=== PATIENT | female | born 1980 | race Two or more races ===

== ENCOUNTER → 2024-10-05 | Outpatient (CLI) | payer MEDICAID, SELFPAY ==
--- NOTE | 2024-10-05 08:33 | XR_ITS ---
Examination: Lumbar spine, 5 views Technique: Lumbar spine AP, lateral, coned lateral lower lumbar spine, bilateral obliques 5 views Exam date and time: October 05, 2024 0854 hours INDICATIONS: Lower back pain beginning 2 weeks ago. FINDINGS: Mild to moderate diffuse facet arthropathy No lumbar fracture Moderate disc narrowing posteriorly L5-S1 No spondylolisthesis Mild lumbar spondylosis IMPRESSION: Moderate degenerative disc disease L5-S1
== END | disposition home or self-care (01) ==
PROVIDERS: PCP Nurse Practitioner Family; Referring Provider Nurse Practitioner Family; Visit Provider Nurse Practitioner Family
DX: M51.379 Other intervertebral disc degeneration, lumbosacral region without mention of lumbar back pain or lower extremity pain (principal)
CPT/HCPCS: 72110

== ENCOUNTER → 2024-11-12 | Outpatient (CLI) | payer MEDICAID, SELFPAY ==
--- NOTE | 2024-11-12 09:57 | XR_ITS ---
Examination: Hand, left 3 views Technique: Hand AP, oblique, lateral 3 views Date and time of exam: November 12, 2024 1055 hours INDICATIONS: Injury to the hand with first digit pain one month ago FINDINGS: Mild juxta-articular bone demineralization No acute fracture 1 mm opaque foreign body in the soft tissue dorsal to the distal aspect proximal phalanx index finger IMPRESSION: No acute fracture
--- NOTE | 2024-11-12 09:57 | XR_ITS ---
Examination: Wrist, left 3 views Technique: Wrist AP, oblique, lateral 3 views Date and time of exam: November 12, 2024 1055 hours INDICATIONS: Left thumb pain beginning one month ago. FINDINGS: Mild osteoarthritis first carpometacarpal joint No fracture or dislocation IMPRESSION: Mild osteoarthritis first carpometacarpal joint
== END | disposition home or self-care (01) ==
PROVIDERS: PCP Nurse Practitioner Family; Referring Provider Nurse Practitioner Gerontology; Visit Provider Nurse Practitioner Gerontology
DX: S69.92XA Unspecified injury of left wrist, hand and finger(s), initial encounter (principal); X58.XXXA Exposure to other specified factors, initial encounter; M18.12 Unilateral primary osteoarthritis of first carpometacarpal joint, left hand
CPT/HCPCS: 73110; 73130

== ENCOUNTER → 2025-05-03 | Outpatient (CLI) | payer MEDICAID, SELFPAY ==
--- NOTE | 2025-05-03 15:45 | XR_ITS ---
Examination: Screening digital mammography, bilateral Computer aided detection 3-D breast Tomosynthesis, bilateral Date and time of exam: May 03, 2025 1430 hours Compared to mammograms dating to October 02, 2021 Indication: Screening Technique: Nonmagnified MLO, CC views of the breasts to been obtained, reconstructed from 3-D Tomosynthesis images. R2 computer aided detection program utilized for evaluation of suspicious masses and/or abnormal calcifications. 3-D Tomosynthesis images obtained. Findings: The breasts are heterogeneously dense, which may obscure small masses 22 mm focal asymmetry upper left breast MLO view, 4.7 cm from the nipple Impression: BI-RADS Category 0: Incomplete: Need additional imaging evaluation Recommend follow-up spot tomographic views upper outer quadrant left breast, left breast sonography to further assess 22 mm focal asymmetry upper left breast MLO view
== END | disposition home or self-care (01) ==
LOC: CDIM 14:20
PROVIDERS: Referring Provider Nurse Practitioner Family; Visit Provider Nurse Practitioner Family
DX: Z12.31 Encounter for screening mammogram for malignant neoplasm of breast (principal); N64.89 Other specified disorders of breast
CPT/HCPCS: 77063; 77067

== ENCOUNTER 2025-06-10 15:31 | Outpatient (RCR) | payer MEDICAID, SELFPAY ==
--- NOTE | 2025-06-10 16:27 | CTCFLWUP_ITS ---
Patient: DAISY SAXENA : 1980 Page 2 of 3 FOLLOW UP NOTE DATE OF SERVICE: 06/10/2025 NAME: DAISY SAXENA ACCOUNT: [id number] : 1980 AGE: 44 INTERVAL HISTORY: No new complaints. 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 S/p tamoxifen for 5 yrs Colitis. Had colonoscopy done about a year ago REASON FOR TODAY?S VISIT: This is office follow-up visit. Ms. Saxena is here at [facility]. Patient denies any complaints today. Denies any cough, chest pain, abdominal pain or leg cramps. Ambulating well without any help. She works full-time in the [employer]. She is getting regular mammograms every year. She had colonoscopy done about a year ago. Unspecified benign mammary dysplasia of right breast [ICD10] N60.91 DATE OF DIAGNOSIS: STAGE/TNM: TREATMENT HISTORY: Care?Plan Start?Date Cycle Day Intent HISTORY OF PRESENT ILLNESS: Daisy Saxena is a 44-year-old Syriac-speaking female with history of right breast mass excision on 12/26/2015. Pathology specimen showed intraductal papilloma with focal atypical ductal hyperplasia. 01/23/2016: Patient was started on tamoxifen for chemoprevention which she took for about 5 years. 09/19/2018: Since last visit patient had bilateral screening mammograms and bilateral breast ultrasounds which showed benign nodules. She had MRI of the both breasts on 08/08/2018 which also showed benign findings. 12/10/2019: Bilateral screening mammograms 12/04/2020: Bilateral screening mammograms? 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 folic acid - 1 mg Daily 2. omeprazole - 10 mg Daily Medications Last Reconciled by Renata Joaquin MD on 06/10/2025 ALLERGIES: No Known Drug Allergies REVIEW OF SYSTEMS: A complete 14-point review of systems was performed and is negative except as noted in interval history. PHYSICAL EXAMINATION: VITAL SIGNS: Temperature?98.3, B/P?109/72, Oxygen?Saturation?98% Weight?157?lbs PAIN: 0 - No pain ECOG Performance Status: 0 - Asymptomatic and fully active GENERAL APPEARANCE: Appears well, in no apparent distress, appropriately interactive. HEENT: Normocephalic, no temporal wasting, normal conjunctiva, no scleral icterus, normal hearing, lips without lesions, neck normal range of motion. CARDIOVASCULAR: Not assessed. PULMONARY: Normal respiratory effort, no respiratory distress or use of accessory muscles, speaking in full sentences, no tachypnea. EXTREMITIES: No pedal edema or cyanosis. SKIN: Normal skin appearance. NEUROLOGIC: Alert and oriented x4. PSHYCHIATRIC: Appropriate affect, mood normal, behavior normal, intact thought and speech. LABORATORY DATA: I have personally reviewed and interpreted each of the patient?s relevant lab tests, abnormal findings are below: Date ASSESSMENT/PLAN: Ms. Saxena denies any complaints. Ms. Saxena completed 5 years of chemoprevention with tamoxifen. History of atypical ductal hyperplasia of the and intraductal papilloma of the right breast. The patient gets yearly mammograms. She had colonoscopy done about a year ago. Discharged back to PCP RETURN TO CLINIC: I reviewed the diagnosis, prognosis, and recommended treatment/procedure options with the patient (and/or their legal patient support representative), including the potential benefits, risks, side effects and alternative therapies. We also discussed the option of no treatment and the possibility of clinical trial participation, if applicable. All questions were addressed, and they demonstrated understanding. They provided informed consent to proceed with the proposed plan of care. BILLING AND COMPLIANCE: I reviewed external records from providers outside my specialty as summarized above. I spent a total of 50 minutes on this patient?s care on the day of their visit excluding time spent related to any billed procedures. This time includes time spent with the patient as well as time spent documenting in the medical record, reviewing patients records and tests, obtaining history, placing orders, communicating with other healthcare professionals, counseling the patient, family or caregiver, and/or care coordination for the diagnoses above. Electronically Signed by: Ranjeet Stuart MD T: 4:25 PM CC: Lana?Leigh? PCP: Akilah Jones Referring: Akilah Jones This document was completed utilizing speech recognition software. Grammatical errors, random word insertions, pronoun errors, and incomplete sentences are an occasional consequence of this system due to software limitations, ambient noise, and hardware issues. Any formal questions or concerns about the content, text or information contained within the body of this dictation should be directly addressed to the provider for clarification.
== END 2025-06-16 23:59 | disposition home or self-care (01) ==
LOC: SCTC 15:31
PROVIDERS: PCP Nurse Practitioner Family; Referring Provider Nurse Practitioner Family; Visit Provider Internal Medicine Hematology & Oncology
DX: Z09 Encounter for follow-up examination after completed treatment for conditions other than malignant neoplasm (principal); Z86.018 Personal history of other benign neoplasm; Z92.29 Personal history of other drug therapy
CPT/HCPCS: 99212; G0463

== ENCOUNTER → 2025-06-12 | Outpatient (CLI) | payer MEDICAID, SELFPAY ==
--- NOTE | 2025-06-12 14:30 | XR_ITS ---
Examination: Breast ultrasound, unilateral, left complete Date and time of exam: June 12, 2025, 1410 hours INDICATIONS: Mammogram May 03, 2025 22 mm focal asymmetry upper left breast MLO view Technique: Real-time cortes scale ultrasonographic imaging performed left breast including all 4 quadrants as well as nipple retroareolar and axillary region. Findings: Benign cyst. 12:00 circumscribed nodule 5 x 5 mm. 11:00 circumscribed nodule 4 x 4 millimeter Poorly visualized 3.5 cm left axillary lymph node IMPRESSION: BI-RADS Category 3: Probably benign findings One additional 6 month left breast sonogram follow-up needed to document stability of solid nodules described above
--- NOTE | 2025-06-12 15:00 | XR_ITS ---
Examination: Diagnostic digital mammography, unilateral, left Computer aided detection 3-D breast Tomosynthesis, unilateral Date and time of exam: 06/12/2025, 2:23 PM Comparisons: December 2021 through April 2025 Indications: Further evaluation of focal asymmetry seen on prior exam. Technique: Nonmagnified MLO, CC views of the left breast have been obtained, reconstructed from 3-D Tomosynthesis images. R2 computer aided detection program utilized for evaluation of suspicious masses and/or abnormal calcifications. 3-D Tomosynthesis images obtained. Technologist: Findings: The breasts are heterogeneously dense, which may obscure small masses. No evidence of abnormal masses or suspicious calcifications. The previously described abnormality does not persist on spot compression views Impression: BI-RADS category 1: Negative findings (within normal) Recommend 1 year follow-up mammogram
== END | disposition home or self-care (01) ==
PROVIDERS: Referring Provider Nurse Practitioner Family; Visit Provider Nurse Practitioner Family
DX: R92.312 Mammographic fatty tissue density, left breast (principal); N63.22 Unspecified lump in the left breast, upper inner quadrant; N63.25 Unspecified lump in the left breast, overlapping quadrants
CPT/HCPCS: 76641; 77061; 77065; G0279